=== PATIENT | female | born 1990 | race Caucasian/White ===

== ENCOUNTER 2017-04-15 23:22 | Emergency (ER) | payer OTHER ==
[2017-04-15] MEDS ORDERED: SODIUM CHLORIDE 0.9% 1,000 ML IV ONE (23:28)
[2017-04-15] MEDS ORDERED: DOXYLAMINE 25 MG TABLET PO STA (23:30)
[2017-04-15] MEDS ORDERED: PYRIDOXINE 100 MG TABLET PO SCH (23:45)
[2017-04-15 23:52] LABS: BILIRUBIN,URINE NEGATIVE (NEGATIVE)
[2017-04-15] MEDS ORDERED: ONDANSETRON ODT 4 MG TABLET TL STA (23:53)
[2017-04-15 23:55] LABS: HCG UR QUAL POSITIVE; UA w/ MICROSCOPIC CHARGE YES
[2017-04-16] MEDS ORDERED: ONDANSETRON ODT 4 MG TABLET ONE (00:02)
[2017-04-16 00:03] LABS: UR CULTURE IF IND INDICATED
[2017-04-16 00:31] LABS: ALBUMIN/GLOBULIN RATIO 1.4 (1.0-2.2); BILIRUBIN,TOTAL 0.8 mg/dL (0.2-1.0); CREATININE 0.7 mg/dL (0.4-1.0); POTASSIUM 3.1 mmol/L (3.5-5.0); TOTAL PROTEIN 7.4 g/dL (6.7-8.2)
[2017-04-16] MEDS ORDERED: NITROFURANTOIN MACRO 100 MG CAPSULE PO STA (00:38)
--- NOTE | 2017-04-16 00:43 | ED Physician Documentation ---
PD HPI FEMALE - Stated complaint Stated Complaint: VOMITING/6-8 WKS PREG - Chief complaint Chief Complaint: Abd Pain - History obtained from History obtained from: Patient, Friend - History of Present Illness Timing - onset: How many weeks ago (1) Timing - details: Gradual onset, Still present Associated symptoms: No: Pelvic pain, Vaginal pain, Vaginal bleeding Contributing factors: [employer] History: G (2), P (0), Termination(s) (1) Similar symptoms before: No diagnosis Recently seen: Not recently seen - Additional information Additional information: Patient is a 26 year old female, approximately 5 weeks by dates who is presenting to the emergency department for nausea and vomiting. Patient states that over the last few days she has not been able to keep anything down and has had minimal fluid intake. Patient states that she is going to have an elective TOP next week, but she cant' go to school since she has felt so sick. Review of Systems Constitutional: denies: Fever, Chills Eyes: denies: Decreased vision, Photophobia Ears: denies: Ear pain, Drainage/discharge Nose: reports: Reviewed and negative Throat: reports: Reviewed and negative Cardiac: denies: Chest pain / pressure, Palpitations Respiratory: reports: Reviewed and negative GI: reports: Nausea, Vomiting. denies: Constipation, Diarrhea : denies: Frequency, Hesitancy Skin: reports: Reviewed and negative Musculoskeletal: reports: Reviewed and negative Neurologic: denies: Generalized weakness, Focal weakness, Numbness Immunocompromised: denies: Immunocompromised PD PAST MEDICAL HISTORY - Past Medical History Past Medical History: No - Past Surgical History Past Surgical History: Yes General: Appendectomy - Present Medications Home Medications: Ambulatory Orders Medication Instructions Recorded Confirmed Nitrofurantoin Monohyd/M-Cryst 100 mg PO BID 5 Days capsule 04/16/17 [Macrobid 100 mg Capsule] Ondansetron Odt [Zofran] 4 mg TL Q6H PRN #20 tablet 04/16/17 - Allergies Allergies/Adverse Reactions: Allergies Allergy/AdvReac Type Severity Reaction Status Date / Time No Known Drug Allergies Allergy Verified 04/15/17 23:41 - Social History Does the pt smoke?: No Smoking Status: Never smoker Does the pt drink ETOH?: No Does the pt have substance abuse?: No - Immunizations Immunizations are current?: No Immunizations: TDAP >10years/unknown - POLST Patient has POLST: No PD ED PE NORMAL - Vitals Vital signs reviewed: Yes - General General: Alert and oriented X 3, Well developed/nourished - HEENT HEENT: Atraumatic, PERRL, Pharynx benign - Neck Neck: Supple, no meningeal sign - Cardiac Cardiac: RRR, No murmur - Respiratory Respiratory: No respiratory distress - Derm Derm: Normal color, Warm and dry, No rash - Extremities Extremities: No deformity, No edema - Neuro Neuro: Alert and oriented X 3, No motor deficit, No sensory deficit, Normal speech - Psych Psych: Normal mood, Normal affect PD ED PE EXPANDED - HEENT HEENT: Dry mucous membranes - Abdomen Abdomen: Tender to palpation, Suprapubic. No: Rebound, Guarding Results - Vitals Vitals: Vital Signs - 24 hr 04/15/17 23:25 Temperature 37 C Heart Rate 76 Respiratory 17 Rate Blood Pressure 119/79 O2 Saturation 99 Oxygen O2 Source Room air - Labs Labs: Laboratory Tests 04/15/17 04/15/17 04/16/17 23:45 23:45 00:09 Sodium 133 L Potassium 3.1 L Chloride 99 L Carbon Dioxide 25 Anion Gap 9.0 BUN 8 Creatinine 0.7 Estimated GFR (MDRD) 101 Glucose 93 Calcium 9.0 Total Bilirubin 0.8 AST 21 ALT 13 Alkaline Phosphatase 43 Total Protein 7.4 Albumin 4.3 Globulin 3.1 Albumin/Globulin Ratio 1.4 Lipase 35 Urine Color YELLOW Urine Clarity HAZY Urine pH 6.0 Ur Specific [place] 1.025 1.025 Urine Protein NEGATIVE Urine Glucose (UA) NEGATIVE Urine Ketones >=80 H Urine Occult Blood NEGATIVE Urine Nitrite POSITIVE H Urine Bilirubin NEGATIVE Urine Urobilinogen 1 (NORMAL) Ur Leukocyte Esterase SMALL H Urine RBC 0-5 Urine WBC 11-25 H Ur Squamous Epith Cells FEW Squamous Urine Bacteria Many H Ur Microscopic Review INDICATED Urine Culture Comments INDICATED Urine HCG, Qual POSITIVE PD MEDICAL DECISION MAKING - ED course Complexity details: reviewed old records, reviewed results, re-evaluated patient , considered differential, d/w patient, d/w family ED course: Patient was seen and examined at bedside. Patient's urine was collected. Patient stated that she did not want to keep the so patient was treated with zofran. Patient had over 80+ ketones and was treated with a fluid bolus. Patient was also found to have a urinary tract infection. patient was treated with macrobid. Patient had no episodes of emesis while in the emergency department. patient required no further work up and was stable for discharge with outpatient follow up. Departure - Departure Disposition: 01 Home, Self Care Clinical Impression: Urinary tract infection, Vomiting Condition: Good Instructions: ED Preg Morning Sickness, ED UTI Cystitis Female Follow-Up: primary,care provider [Other] - Within 3 Days Prescriptions: Nitrofurantoin Monohyd/M-Cryst [Macrobid 100 mg Capsule] 100 mg PO BID 5 Days capsule Ondansetron Odt [Zofran] 4 mg TL Q6H PRN #20 tablet PRN Reason: Nausea / Vomiting Comments: Your symptoms today are likely being caused by a combination of morning sickness , urinary tract infection and dehydration. it is important to take the zofran for nausea and stay well hydrated with water and electrolyte solutions (gatorade /pedialyte). You had your first dose of antibiotics today and will need to be on them for the next five days. You should follow up with your doctor as scheduled. You may return to the emergency department at any time for new, worsening or uncontrollable symptoms. Forms: Activity restrictions
[2017-04-16 00:57] LABS: BASOPHILS % (AUTO) 0.4 %; EOSINOPHILS % (AUTO) 0.6 %; HCT - HEMATOCRIT 39.7 % (37.0-47.0); HGB - HEMOGLOBIN 13.6 g/dL (12.0-16.0); MEAN CORPUSCULAR HGB CONC 34.2 g/dL (32.0-36.0); MEAN CORPUSCULAR VOLUME 87.6 fL (81.0-99.0); MONOCYTES # (AUTO) 0.4 10^3/uL (0.0-1.0); MONOCYTES % (AUTO) 5.6 %; NEUTROPHILS # (AUTO) 4.8 10^3/uL (1.5-6.6); NEUTROPHILS % (AUTO) 66.4 %; NUCLEATED RED BLOOD CELLS AUTO 0.2 /100WBC; RED BLOOD COUNT 4.53 10^6/uL (4.20-5.40); RED CELL DISTRIBUTION WIDTH 13.2 % (12.0-15.0); UNCORRECTED WHITE BLOOD COUNT 7.2 x10^3/uL; WHITE BLOOD COUNT 7.2 x10^3/uL (4.8-10.8)
[2017-04-16] MEDS ORDERED: NITROFURANTOIN MACRO 100 MG CAPSULE PO ONE (01:07)
[2017-04-16 01:09] VITALS: BP 99/56
== END 2017-04-16 01:18 | disposition home or self-care (01) ==
LOC: ED 23:22
DX: O23.41 Unspecified infection of urinary tract in pregnancy, first trimester (principal); O21.9 Vomiting of pregnancy, unspecified; Z3A.01 Less than 8 weeks gestation of pregnancy
CPT/HCPCS: 36415; 80053; 81001; 81025; 83690; 85025; 87077; 87086; 87181; 96360; 99283; A9270; Q0162; 81003

== ENCOUNTER 2017-07-28 17:38 | Emergency (ER) | payer OTHER ==
--- NOTE | 2017-07-28 20:35 | ED Physician Documentation ---
PD HPI URI - Stated complaint Stated Complaint: SORE THROAT - Chief complaint Chief Complaint: Heent - History obtained from History obtained from: Patient - History of Present Illness Timing - onset: How many days ago (several days of sinus congestion and purulent drainage, causing sore throat on and off, some cough.) Timing duration: Days Timing details: Gradual onset, Still present Associated symptoms: Fever, Sinus pain, Sore throat, Swollen nodes. No: Rhinorrhea, Productive cough Contributing factors: No: Sick contact, Travel, Immunocompromised Improves by: No: Rest Similar symptoms before: Has not had sx before Recently seen: Not recently seen Review of Systems Constitutional: reports: Fever Nose: reports: Congestion, Sinus pressure / pain Throat: reports: Sore throat. denies: Oral lesions / sores Cardiac: denies: Chest pain / pressure, Palpitations Respiratory: denies: Dyspnea, Cough PD PAST MEDICAL HISTORY - Past Medical History Past Medical History: No - Past Surgical History Past Surgical History: Yes General: Appendectomy - Present Medications Home Medications: Ambulatory Orders Medication Instructions Recorded Confirmed Amoxicillin 500 mg PO TID #20 capsule 07/28/17 Cetirizine [ZyrTEC] 10 mg PO DAILY #20 tablet 07/28/17 Dexamethasone [Decadron] 4 mg PO DAILY #5 tablet 07/28/17 - Allergies Allergies/Adverse Reactions: Allergies Allergy/AdvReac Type Severity Reaction Status Date / Time No Known Drug Allergies Allergy Verified 07/28/17 19:31 - Social History Does the pt smoke?: No Smoking Status: Never smoker Does the pt drink ETOH?: No Does the pt have substance abuse?: No - Immunizations Immunizations are current?: Yes Immunizations: TDAP >10years/unknown - POLST Patient has POLST: No PD ED PE NORMAL - Vitals Vital signs reviewed: Yes - General General: Alert and oriented X 3, No acute distress, Well developed/nourished - HEENT HEENT: Ears normal, Moist mucous membranes, Pharynx benign - Neck Neck: Supple, no meningeal sign, No bony TTP, No adenopathy - Cardiac Cardiac: RRR, No murmur - Respiratory Respiratory: Clear bilaterally - Abdomen Abdomen: Soft, Non tender - Back Back: No CVA TTP - Derm Derm: Normal color, Warm and dry, No rash - Extremities Extremities: No tenderness to palpate, No calf tenderness / cord - Neuro Neuro: Alert and oriented X 3, No motor deficit, Normal speech Results - Vitals Vitals: Oxygen O2 Source Room air - Labs Labs: Microbiology 07/28/17 19:25 Group A Strep Throat Culture - Final Throat MIXED OROPHARYNGEAL JUDITH PRESENT. NO BETA STREP PRESENT IN CULTURE. Laboratory Tests 07/28/17 19:25 Group A Strep Rapid Negative PD MEDICAL DECISION MAKING - ED course Complexity details: considered differential (sounds more like sinus drainage and process. ), d/w patient Departure - Departure Disposition: Home, Self Care Clinical Impression: Sinusitis, acute Qualifiers: Sinusitis location: pansinusitis Recurrence: non-recurrent Qualified Code(s): J01.40 - Acute pansinusitis, unspecified Condition: Stable Record reviewed to determine appropriate education?: Yes Instructions: ED Sinusitis Abx Tx Prescriptions: Amoxicillin 500 mg PO TID #20 capsule Cetirizine [ZyrTEC] 10 mg PO DAILY #20 tablet Dexamethasone [Decadron] 4 mg PO DAILY #5 tablet Comments: Drink lots of fluids. He can use saline nose spray to cleanse the nasal passages and promote drainage. Tylenol or ibuprofen if needed for fevers or pains. This sounds like sinus inflammation and likely infection. Amoxicillin 3 times a day for a week. Decadron anti-inflammatory daily for 5 days. Cetirizine seen antihistamine daily for a week or 2. Recheck if not improving over the next several days. It is okay to work. Discharge Date/Time: 07/28/17 21:04
[2017-07-28] MEDS ORDERED: AMOXICILLIN 250 MG CAPSULE PO STA (20:47)
[2017-07-28] MEDS ORDERED: ACETAMINOPHEN 325 MG TABLET PO STA (20:47)
[2017-07-28] MEDS ORDERED: CETIRIZINE 10 MG TABLET PO STA (20:47)
[2017-07-28] MEDS ORDERED: DEXAMETHASONE 10 MG/ML VIAL PO STA (20:47)
[2017-07-28 20:49] VITALS: BP 106/71
== END 2017-07-28 21:04 | disposition home or self-care (01) ==
LOC: ED 17:38
DX: J01.40 Acute pansinusitis, unspecified (principal)
CPT/HCPCS: 87070; 87430; 99283; A9270